=== PATIENT | male | born 1980 | race Caucasian/White ===

== ENCOUNTER 2020-12-01 20:54 | Emergency (ER) | payer OTHER ==
--- NOTE | 2020-12-01 21:54 | ED ---
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 Patient presents under court petition, court ordered psychiatric evaluation, patient some anxiety and stress reaction and is currently denying homicidal or suicidal thoughts. He denies drug or alcohol abuse MD Complaint: other (Petition for psychiatric evaluation) -: unknown Associated Psychiatric Symptoms: none, depression History of same: No Quality: intermittent Improves With: none Worsens With: none Context: significant life stressor Associated Symptoms: denies other symptoms Treatments Prior to Arrival: placed on mental health hold - Related Data Previous Rx's Medication Instructions Recorded Lisinopril [Prinivil] 10 mg PO DAILY #30 tab 12/02/20 hydroCHLOROthiazide 25 mg PO DAILY #30 tablet 12/02/20 Allergies Allergy/AdvReac Type Severity Reaction Status Date / Time No Known Allergies Allergy Verified 12/01/20 22:07 Review of Systems ROS Statement: Those systems with pertinent positive or pertinent negative responses have been documented in the HPI. ROS Other: All systems not noted in ROS Statement are negative. Past Medical History Past Medical History: Hypertension, Thyroid Disorder History of Any Multi-Drug Resistant Organisms: None Reported Additional Past Surgical History / Comment(s): parathyroid tumor removed. Past Psychological History: Depression Smoking Status: Current some day smoker, Never smoker Past Alcohol Use History: Occasional Past Drug Use History: None Reported General Exam Limitations: no limitations General appearance: alert, in no apparent distress, anxious Head exam: Present: atraumatic, normocephalic, normal inspection Eye exam: Present: normal appearance, PERRL, EOMI. Absent: scleral icterus, conjunctival injection, periorbital swelling ENT exam: Present: normal exam, mucous membranes moist Neck exam: Present: normal inspection. Absent: tenderness, meningismus, lymphadenopathy Respiratory exam: Present: normal lung sounds bilaterally. Absent: respiratory distress, wheezes, rales, rhonchi, stridor Cardiovascular Exam: Present: normal rhythm, tachycardia, normal heart sounds. Absent: systolic murmur, diastolic murmur, rubs, gallop, clicks GI/Abdominal exam: Present: soft, normal bowel sounds. Absent: distended, tenderness, guarding, rebound, rigid Extremities exam: Present: normal inspection, full ROM, normal capillary refill. Absent: tenderness, pedal edema, joint swelling, calf tenderness Back exam: Present: normal inspection Neurological exam: Present: alert, oriented X3, CN II-XII intact Psychiatric exam: Present: normal affect, normal mood Skin exam: Present: warm, dry, intact, normal color. Absent: rash Course Vital Signs 12/01/20 12/02/20 20:57 00:32 Temperature 98.3 F 98.1 F Pulse Rate 114 H 87 Respiratory 17 20 Rate Blood Pressure 223/146 204/122 O2 Sat by Pulse 95 95 Oximetry - Reevaluation(s) Reevaluation #1: 12/02/20 00:44 Medical record is reviewed Reevaluation #2: 12/02/20 00:44 Patient was made medically clear for psychiatry and is on petition Medical Decision Making - Medical Decision Making 39-year-old male who presented on a court petition for psychiatric evaluation. Patient does have elevated blood pressure heart rate here in the ER but is been not taking his medications as prescribed. Patient will be discharged home on blood pressure medication and is okay for discharge. Disposition Clinical Impression: Depression, Hypertension Disposition: HOME SELF-CARE Condition: Good Instructions (If sedation given, give patient instructions): Hypertension (ED) Prescriptions: hydroCHLOROthiazide 25 mg PO DAILY #30 tablet Lisinopril [Prinivil] 10 mg PO DAILY #30 tab Is patient prescribed a controlled substance at d/c from ED?: No Referrals: None,Stated [Primary Care Provider] - 1-2 days
[2020-12-02 00:35] VITALS: RESP 20; TEMP 98.1
[2020-12-02] MEDS ORDERED: cloNIDine 0.3 MG/24HR PATCH TRANSDERM STA (00:41)
[2020-12-02] MEDS ORDERED: LISINOPRIL-HCTZ 10-12.5 MG 1 EACH TAB PO STA (00:41)
[2020-12-02] MEDS ORDERED: LORazepam 1 MG TAB PO STA (00:41)
[2020-12-02 01:31] VITALS: BP 216/139; PULSE 79
== END 2020-12-02 01:38 | disposition home or self-care (01) ==
LOC: EC 20:54
DX: F32.9 Major depressive disorder, single episode, unspecified (principal); I10 Essential (primary) hypertension; F41.9 Anxiety disorder, unspecified
CPT/HCPCS: 82075; 99283